=== PATIENT | female | born 1960 | race African-American/Black ===

== ENCOUNTER 2018-02-04 06:08 | Inpatient (IN) ==
--- NOTE | 2018-02-03 20:06 | Discharge Summary ---
<Jeanne Hoff - Last Filed: 02/03/18 20:04> Date of Encounter: 02/03/18 - Discharge Diagnosis (1) Arthritis of right hip Priority: Primary Status: Acute (2) Status post total hip replacement, right Priority: Primary Status: Acute (3) Tobacco use Priority: Secondary Status: Chronic (4) Obesity Priority: Secondary Status: Chronic Qualifiers: Obesity type: due to excess calories Obesity classification: unspecified obesity classification Serious obesity comorbidity presence: without serious comorbidity Qualified Code(s): E66.09 - Other obesity due to excess calories (5) NANCIE on CPAP Priority: Secondary Status: Chronic (6) Heart murmur Priority: Secondary Status: Chronic (7) Chronic pain Priority: Secondary Status: Chronic Comments: Takes Percocet 7.5/325 BID #30, 15 dy supply - LD: 01/06/18 O[facility]RS reviewed. Holding Chronic pain medication x 1-2 week. Qualifiers: Chronic pain type: other chronic pain Qualified Code(s): G89.29 - Other chronic pain - Hospital Course Hospital course: Ms. Stern is a 57 year old female - Time Spent with Patient Total time spent providing and/or coordinating discharge services: - Discharge Medications Home Medications: Ascorbate Calcium [Vitamin C] 500 mg PO DAILY 01/08/18 [History] Cholecalciferol (D-3) [Vitamin D] 1,000 unit PO DAILY 01/08/18 [History] Doxepin HCl [Doxepin HCl] 100 mg PO HS 01/08/18 [History] Melatonin [Melatonin] 3 mg PO HS 01/08/18 [History] [place]-3/Dha/Epa/Fish Oil [Fish Oil 1,000 mg Softgel] 1 cap PO DAILY 01/08/18 [ History] Omeprazole [PriLOSEC] 40 mg PO DAILY 01/08/18 [History] Sennosides/Docusate Sodium [Senna-S Tablet] 1 tab PO DAILY 01/08/18 [History] Trospium Chloride 20 mg PO BID 01/08/18 [History] traZODone [TraZODone] 50 mg PO HS 01/08/18 [History] Aspirin Enteric Coated [Aspirin EC] 325 mg PO BID 10 Days #20 tablet. [Rx] OxyCODONE/APAP 5/325 [Percocet 5/325 MG] 1 each PO Q6HR PRN 7 Days #28 tablet [Rx] Aspirin [Lo-Dose Aspirin EC] 81 mg PO HS 02/04/18 [History] Bifidobacterium Infantis [Align] 4 mg PO DAILY 02/04/18 [History] Ca/D3/Mag#11/Zinc/Engineer Steam/Richard/Bor [Caltrate 600+D Plus Tablet] 1 tab PO BID [History] Ibuprofen [Motrin] 800 mg PO Q8HR PRN 02/04/18 [History] Multivitamin [Multivitamins] 1 tab PO DAILY 02/04/18 [History] Polyethylene Glycol 3350 [MiraLAX] 17 gm PO DAILY PRN 02/04/18 [History] Pramipexole Di-HCl [Pramipexole Dihydrochloride] 0.5 mg PO HS 02/04/18 [History] Psyllium Husk [Daily Fiber] 0.52 gm PO DAILY 02/04/18 [History] Ramelteon [Rozerem] 8 mg PO HS 02/04/18 [History] Vitamin E 1,000 unit PO DAILY 02/04/18 [History] Zolpidem [Ambien] 5 mg PO HS 02/04/18 [History] Allergies/Adverse Reactions: 3 Allergy/AdvReac Type Severity Reaction Status Date / Time No Known Allergies Allergy Verified 02/04/18 07:49 Primary care physician: Betina Morrissey DO - Patient Status Disposition: Home Health Service Condition: Good - Discharge Instructions Follow Up With: Betina Morrissey DO [Primary Care Provider] - <Vasiliy Neal - Last Filed: 02/05/18 06:21> Orders not resulted at time of discharge: Pending orders 02/04/18 00:01 XR hip complete RT [XR] Routine H/H [Hemoglobin and Hematocrit] [HEME] Routine 02/04/18 07:20 US anesthesia pain block [US] Routine Date of Encounter: 02/05/18 Time of Encounter: 06:21 - Discharge Diagnosis (1) Morbid obesity with BMI of 40.0-44.9, adult Priority: Secondary Status: Chronic (2) Lumbar radiculitis Priority: Secondary Status: Chronic (3) Arthritis of right hip Priority: Primary Status: Chronic (4) Status post total hip replacement, right Priority: Primary Status: Acute (5) Tobacco use Priority: Secondary Status: Chronic (6) NANCIE on CPAP Priority: Secondary Status: Chronic (7) Heart murmur Priority: Secondary Status: Chronic (8) Chronic pain Priority: Secondary Status: Chronic Qualifiers: Chronic pain type: other chronic pain Qualified Code(s): G89.29 - Other chronic pain - Hospital Course Hospital course: Ms. Stern is a 57 year old female Status post total hip replacement The patient had an uneventful postoperative course. They received antibiotics and physical therapy and were discharged in stable condition. There will follow -up in the office in 2 weeks. - Time Spent with Patient Total time spent providing and/or coordinating discharge services: Primary care physician: Betina Morrissey DO - Patient Status Functional capacity at discharge: uses cane/walker Overall status at discharge: patient is progressing back to baseline
--- NOTE | 2018-02-03 20:10 | Physician Discharge Referral ---
Home Health/Hosp Referral Info Transfer to: Home Health Provider in Charge Post Discharge: PCP - Diagnosis (1) Arthritis of right hip Priority: Primary Status: Acute (2) Status post total hip replacement, right Priority: Primary Status: Acute (3) Tobacco use Status: Chronic (4) Obesity Status: Chronic (5) NANCIE on CPAP Status: Chronic (6) Heart murmur Status: Chronic (7) Chronic pain Status: Chronic - Respiratory Orders None Smoking Cessation: Smoking cessation has been advised. For more information, call the [place] Tobacco Quit Line at 6-931-JWYB-NOW. - Diet/Nutrition Diet/Nutrition Orders: Regular - Activity Activity Orders: Up ad siddhartha, Ambulate, Walker - Services Needed Following services are medically necessary services: Nursing, Home Health Aide, Physical Therapy, Occupational Therapy Other Treatments: HIP Continuity Opsite dressing, leave intact until first post-operative visit. If dressing becomes >50% saturated, contact office, remove dressing and place appropriate dressing in its place. Do not allow for dressing to get wet. Zipline/Thomas in place, plan to remove at post-operative day #14-16. Total Joint Precautions x 6 weeks Apply cold therapy wrap 3-6x/day for 20 minutes at a time. Encourage ambulation throughout the day Use Incentive spirometer 10x/hour. Elevate affected extremity above heart as tolerated. Brace: Wear hip abductor brace at night x 6 weeks.~ - Transfer Medications Prescriptions: OxyCODONE/APAP 5/325 [Percocet 5/325 MG] 1 each PO Q6HR PRN 7 Days #28 tablet PRN Reason: Severe Pain Aspirin Enteric Coated [Aspirin EC] 325 mg PO BID 10 Days #20 tablet.dr Home Medications: Ascorbate Calcium [Vitamin C] 500 mg PO DAILY 01/08/18 [History] Cholecalciferol (D-3) [Vitamin D] 1,000 unit PO DAILY 01/08/18 [History] Doxepin HCl [Doxepin HCl] 100 mg PO DAILY 01/08/18 [History] Ibuprofen [Advil] 200 mg PO Q8H PRN 01/08/18 [History] Melatonin [Melatonin] 3 mg PO HS 01/08/18 [History] [place]-3/Dha/Epa/Fish Oil [Fish Oil 1,000 mg Softgel] 1 cap PO DAILY 01/08/18 [ History] Omeprazole [PriLOSEC] 40 mg PO DAILY 01/08/18 [History] Sennosides/Docusate Sodium [Senna-S Tablet] 1 tab PO DAILY 01/08/18 [History] Trospium Chloride 20 mg PO BID 01/08/18 [History] traZODone [TraZODone] 50 mg PO HS 01/08/18 [History] Aspirin Enteric Coated [Aspirin EC] 325 mg PO BID 10 Days #20 tablet. [Rx] OxyCODONE/APAP 5/325 [Percocet 5/325 MG] 1 each PO Q6HR PRN 7 Days #28 tablet [Rx] Allergies/Adverse Reactions: 3 Allergy/AdvReac Type Severity Reaction Status Date / Time No Known Allergies Allergy Verified 01/29/18 13:25 Certification: Further, I certify that my clinical findings support that this patient is homebound (i.e. absences from home require considerable and taxing effort and are for medical reasons or amish services or infrequently or short duration when for other reasons) because: Homebound Reason: Patient requires assistance of a person or device to safely leave home, Post-surgery restriction and or conditions limit ability to leave home Attestation: My signature below is to certify that this patient is under my care and that I, or nurse practitioner, or a physician's emergency medicine physician assistant working with me, has a face-to -face encounter with this patient.
[2018-02-04] MEDS ORDERED: Ondansetron 4 MG/2 ML VIAL ONE (06:12)
[2018-02-04] MEDS ORDERED: *HR* FentaNYL (PF) 100 MCG/2 ML VIAL ONE ×2 (06:12→08:32)
[2018-02-04] MEDS ORDERED: Dexamethasone 4 MG/ML VIAL ONE (06:12)
[2018-02-04] MEDS ORDERED: *HR* Succinylcholine 200 MG/10 ML VIAL IVP ONE (06:12)
[2018-02-04] MEDS ORDERED: *HR* Rocuronium Bromide 50 MG/5 ML VIAL ONE (06:12)
[2018-02-04] MEDS ORDERED: Lidocaine -MPF 4% 5 ML AMPUL ONE (06:12)
[2018-02-04] MEDS ORDERED: *HR* Midazolam HCl 2 MG/2 ML VIAL ONE (06:12)
[2018-02-04] MEDS ORDERED: Lidocaine -MPF 2% 2 ML VIAL ONE (06:12)
[2018-02-04] MEDS ORDERED: *HR* Propofol 200 MG/20 ML VIAL IVP ONE (06:12)
[2018-02-04] MEDS ORDERED: CeFAZolin Syr 3,000MG/30 ML 3,000 MG/30 ML SYRINGE IVPB ONE (06:21)
[2018-02-04] MEDS ORDERED: Lidocaine -MPF 1% 2 ML VIAL ID ONE (06:21)
[2018-02-04] MEDS ORDERED: Albuterol 2.5 MG/3 ML NEBULIZER IH ONE (06:21)
[2018-02-04] MEDS ORDERED: Ringers Solution, Lactated 1,000 ML IVC SCH ×2 (06:30→11:08)
--- NOTE | 2018-02-04 06:48 | History & Physical Report ---
Date of Encounter: 02/04/18 Time of Encounter: 06:48 24 Hour HP Update - Instructions Instructions: If the History and Physical is less than 30 days old and was completed prior to A.M. admission and or procedure and has NOT been updated on calendar day of procedure please complete this update prior to performing procedure. - Update Patient reports changes in Medical Condition: No Changes in examination, assessment, or condition: No Changes in Medication: No Preop tests/diagnostics Reviewed: Yes Surgery Remains Indicated: Yes Consent for Planned Operative Procedure(s) Verified: Yes - Pre-Operative Checklist Preoperative Checklist Indicated: No Prophylactic Antibiotic Ordered: Yes Is VTE Prophylaxis Indicated?: Yes
[2018-02-04] MEDS ORDERED: Famotidine 20 MG/2 ML VIAL IVP ONE (07:04)
[2018-02-04] MEDS ORDERED: Pregabalin 75 MG CAPSULE PO ONE (07:05)
--- NOTE | 2018-02-04 07:08 | Anesthesia Evaluation PreOp ---
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 HX Other Medical History: Hepatic (Hep C), Diabetes Type II, Other (Morbid Obesity) Alcohol Use: none Drug use: none Medications and Allergies Ascorbate Calcium [Vitamin C] 500 mg PO DAILY 01/08/18 [History] Cholecalciferol (D-3) [Vitamin D] 1,000 unit PO DAILY 01/08/18 [History] Doxepin HCl [Doxepin HCl] 100 mg PO DAILY 01/08/18 [History] Ibuprofen [Advil] 200 mg PO Q8H PRN 01/08/18 [History] Melatonin [Melatonin] 3 mg PO HS 01/08/18 [History] [place]-3/Dha/Epa/Fish Oil [Fish Oil 1,000 mg Softgel] 1 cap PO DAILY 01/08/18 [ History] Omeprazole [PriLOSEC] 40 mg PO DAILY 01/08/18 [History] Sennosides/Docusate Sodium [Senna-S Tablet] 1 tab PO DAILY 01/08/18 [History] Trospium Chloride 20 mg PO BID 01/08/18 [History] traZODone [TraZODone] 50 mg PO HS 01/08/18 [History] Aspirin Enteric Coated [Aspirin EC] 325 mg PO BID 10 Days #20 tablet. [Rx] OxyCODONE/APAP 5/325 [Percocet 5/325 MG] 1 each PO Q6HR PRN 7 Days #28 tablet [Rx] 3 Allergy/AdvReac Type Severity Reaction Status Date / Time No Known Allergies Allergy Verified 01/29/18 13:25 - Meds/Allergy Pre-op Review Medications Reviewed: Yes Allergies Reviewed: Yes Beta Blockers on Current Med List: No Anesthesia Results - Labs Laboratory Tests 01/29/18 01/29/18 01/29/18 14:02 14:02 14:07 Hgb 12.7 Hct 40.1 Plt Count 270 PT 10.9 INR 1.0 APTT 32.1 Sodium 141 Potassium 4.1 BUN 20 Creatinine 0.99 - Imaging EKG: report reviewed (SR) Anesthesia Exam O2 Sat Height 1.73 m Height 1.73 m Weight 126.552 kg Weight 126.552 kg O2 Sat by Pulse Oximetry 96 O2 Sat by Pulse Oximetry 96 Vital Signs Temp Pulse Resp BP Pulse Ox 98.0 F 82 18 116/73 96 02/04/18 06:27 02/04/18 06:27 02/04/18 06:27 02/04/18 06:27 02/04/18 06:27 Height: 5'8 Weight: 279 lbs NPO (# of Hours): MN Pain Scale: 0 - HEENT Pupil (Motor): Pupils equal, EOMI Mallampati: II Teeth: Normal Oral Opening: Greater than 3 - 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
[2018-02-04] MEDS ORDERED: Lidocaine -MPF 1% 2 ML VIAL ONE (07:13)
[2018-02-04] MEDS ORDERED: Ethanol\\Acetic Acid\\Na Ace\\Ben 1,000 ML IRRIG.SOLN IR ONE (07:14)
[2018-02-04] MEDS ORDERED: ROPIVACAINE HCL/PF 0.5% 30 ML VIAL ONE (07:19)
[2018-02-04] MEDS ORDERED: Dexmedetomidine HCl 200 MCG/50 ML MLS IVC ONE (07:26)
--- NOTE | 2018-02-04 07:57 | Anesthesia Procedures ---
Date of Encounter: 02/04/18 Time of Encounter: 07:05 Procedures: Anesthesia - Nerve Block Procedure Date: 02/04/18 Time: 07:30 Pre-op Diagnosis: OA Rt Hip Surgical Procedure: Rt Hip Total Replacement Checklist: Correct Patient Identifier Correct side: Right Blood Thinner: No Monitor Applied: EKG, BP, Pulse Oximetry Supplemental Oxygen via Nasal Cannula (L/min): 2 Sedation: Versed (mg): 2 Sedation: Fentanyl (mcg): 100 Indication: Post Op Analgesia Pre-op Neuro Deficits: No Block Type: Other (Fascia Iliaca) Catheter placed: No Depth at skin (cm): 4 Sterile Technique: Yes Ultrasound used: Yes Anatomy identified: Yes Visual spread of Local: Yes Neuro Stimulation: No Blood on Needle Aspiration: No Smooth Injection of Local: Yes Pain with Injection of Local: No Prep: Chlorhexadine Needle: 21 x 100 mm Stimuplex Local: Ropivacaine (0.25%), Other (Precedex 40 micrograms) Volume (cc): 60 Number of Attempts: 1 Complications: None/effective block Vitals: Vital Signs/O2 Sat/Glucose, Most Current Temp Pulse Resp BP Pulse Ox 02/04/18 06:27 98.0 F 82 18 116/73 96
[2018-02-04] MEDS ORDERED: *HR* OxyCODONE Immed Rel 5 MG TABLET PO PRN (08:14)
[2018-02-04] MEDS ORDERED: Ondansetron 4 MG/2 ML VIAL IVP ONE (08:14)
[2018-02-04] MEDS ORDERED: Neostigmine Methylsulfate 3 MG/3 ML SYRINGE ONE (08:29)
[2018-02-04] MEDS ORDERED: Ketorolac 30 MG/ML VIAL ONE (09:00)
--- NOTE | 2018-02-04 09:13 | Orthopedic Operative Note ---
Date of procedure: 02/04/18 Pre-op diagnosis: right hip arthritis Post-op diagnosis: same Procedure: Procedure: Right Total Hip Replacment robotic-assisted Estimated blood loss: 200 cc Hardware: Metal and polyethylene replacement. Layla DM Cup: 52 cup Femoral size6 stem Head: 12 head with Evelyne Procedural Notes: Grade 4 arthritic changes femoral head acetabular socket, procedure performed with robotic assistance. 2 mm short as measured by CT scan preop Operative procedure: The patient was brought to the operating room and placed on the operating room table. After general anesthesia was administered the patient was placed in the lateral decubitus position with the operative leg up. All pressure points were padded appropriately and the head was stabilized in the neutral position. The operative extremity was prepped and draped in the sterile surgical fashion patient received IV antibiotic prior to skin incision. 3 Steinmann pins were placed in the iliac crest 3 cm proximal to the anterior superior iliac spine this was for the robotic-assisted sensor. This was done through a small 2 cm incision. A standard posterior approach is made to the operative hip, the incision was made through the skin and subcutaneous tissue hemostasis was obtained with Bovie cautery. Using careful sharp dissection the fascia was identified and incised exposing the external rotators. The femoral checkpoint was placed leg length was measured at this time utilizing robotic assistance. The external rotators were released off the greater trochanter and tagged with # 2 FiberWire suture. The capsule was T'd open and the hip was brought into internal rotation. Patient noted to have grade 4 arthritic changes femoral head. The femoral neck cut was made at the appropriate level roughly 8 mm proximal to the lesser trochanter aced on preoperative templating. An anterior capsulotomy was performed for the anterior retractor. Soft tissues removed from the acetabulum. Patient noted to have grade 4 arthritic changes acetabulum. The acetabulum checkpoint was placed confirmed. The acetabulum was then mapped with robotic assistance. Based on the preoperative plan the acetabulum was reamed in one step with a 51 reamer. The 52 acetabulum was impacted with robotic assistance and 44 degrees of abduction and 18 degrees of anteversion. The hip was brought back in to internal rotation and prepared with the cook box filler followed by the canal finder followed by the reaming process to a size 5/ 6 broaching process in 20 degrees anteversion. It was broached up to the appropriate size 6. Trial reduction revealed leg lengths close to normal. The femoral implant was impacted in place in 20 degrees of anteversion. Trial reduction found the hip to be stable with 12 head and Evelyne. The trials were removed and the real implants were impacted in place. The hip was reduced, patient had robotic confirmed leg length of 13 mm longer than the contralateral side. The hip had excellent stability with forward flexion to 90 degrees adduction of 30 degrees and internal rotation of 60 degrees. The hip had no shuck. The hips after 2 minutes with a antibacterial solution. It was irrigated out with 2 L of pulse irrigation. The checkpoints were removed, Steinmann pins were removed. The hip was closed by the PA. The deep tissue was irrigated and closed deep with #1 PDS suture superficially with 0 PDS suture and skin was closed with Dermabond and zip tie. The patient was placed in a sterile dressing and abduction pillow. The patient was extubated and transferred to the recovery room in stable condition. Anesthesia: GETDelmy Surgeon: Vasiliy Neal Was there an permit review assistant present: Yes Wet End Supervisor: Jeanne Hoff Estimated blood loss (cc): 200 Condition: stable Disposition: PACU
[2018-02-04] MEDS ORDERED: *HR* PHENYLEPHRINE 1,000 MCG/10 ML SYRINGE IVP ONE (09:41)
[2018-02-04] MEDS: MORPHINE SUL Oral CONC 10 MG/0.5 ML ORAL.SYG SL PRN ×2 (09:54→10:04)
[2018-02-04] MEDS ORDERED: Methocarbamol 500 MG TABLET PO ONE (10:13)
--- NOTE | 2018-02-04 10:50 | Anesthesia Evaluation Post Op ---
Date of Encounter: 02/04/18 Time of Encounter: 10:50 - Vital Signs Vital Signs: Vital Signs/O2 Sat/Glucose, Most Current Temp Pulse Resp BP Pulse Ox 02/04/18 10:44 97.2 F L 76 16 142/80 99 02/04/18 10:34 80 16 164/85 100 02/04/18 10:24 67 16 157/93 100 02/04/18 10:14 97.1 F L 76 16 154/90 100 02/04/18 10:04 73 16 151/90 99 02/04/18 09:54 72 16 140/81 99 02/04/18 09:44 97.5 F L 78 16 145/79 100 02/04/18 07:35 87 18 121/52 95 - Lungs Lungs: Clear Ascult./Percussion - Airway Airway: Non-obstructed - Cardiovascular Regular Rate - Mental Status Mental Status: Alert & Oriented, Answers Appropriately - Pain Pain Scale: 0 - Nausea Vomiting Nausea Vomiting: Not Present - Hydration Hydration: Ice chips - Discharge PostOp Status: Transfer Patient to floor
[2018-02-04] MEDS ORDERED: Temazepam 15 MG CAPSULE PO PRN (11:08)
[2018-02-04] MEDS ORDERED: MOM Conc 10 ML UD.LIQ PO PRN (11:08)
[2018-02-04] MEDS ORDERED: *HR* OxyCODONE/APAP 5/325 TABLET PO PRN (11:08)
[2018-02-04] MEDS ORDERED: Sennosides 8.6 MG TABLET PO PRN (11:08)
[2018-02-04] MEDS ORDERED: Ondansetron 4 MG/2 ML VIAL IVP PRN (11:08)
[2018-02-04] MEDS ORDERED: Ascorbic Acid 500 MG TABLET PO SCH (11:08)
[2018-02-04] MEDS ORDERED: traMADol 50 MG TABLET PO PRN (11:08)
[2018-02-04] MEDS ORDERED: Naloxone 0.4 MG/ML INJ IVP PRN (11:08)
[2018-02-04 11:19] LABS: Hematocrit 38.3 % (35.3-44.9); Hemoglobin 12.3 g/dL (11.5-15.4)
[2018-02-04] MEDS: (Trospium Chloride [Trospium Chloride] 20 MG) PO SCH ×2 (15:26→20:27)
[2018-02-04] MEDS: [UNRECOGNIZED DRUG - OTHER] PO SCH (15:26)
[2018-02-04] MEDS: Psyllium 1 PACKET POWD.PACK PO SCH (15:30)
[2018-02-04] MEDS: Multivit/Ca/Min/Fe/FA 1 TAB TABLET PO SCH ×2 (15:34→15:35)
[2018-02-04] MEDS: Ascorbic Acid 500 MG TABLET PO SCH ×2 (15:34→16:16)
[2018-02-04] MEDS: Cholecalciferol (D-3) 1,000 UNIT TABLET PO SCH (15:35)
[2018-02-04] MEDS: Sennosides/Docusate Sodium TABLET PO SCH (15:35)
[2018-02-04] MEDS: *HR* Enoxaparin 30 MG/0.3 ML SYRINGE SQ SCH (18:00)
[2018-02-04] MEDS ORDERED: *HR* Enoxaparin 30 MG/0.3 ML SYRINGE SQ SCH (18:00)
[2018-02-04] MEDS: CeFAZolin Syr 3,000MG/30 ML 3,000 MG/30 ML SYRINGE IVPB SCH (18:00)
[2018-02-04] MEDS: traZODone 50 MG TABLET PO SCH (20:25)
[2018-02-04] MEDS: Aspirin Enteric Coated 81 MG Tablet PO SCH (20:26)
[2018-02-04] MEDS: *HR* OxyCODONE Immed Rel 5 MG TABLET PO PRN (20:26)
[2018-02-04] MEDS: Lactobacillus 1 EACH CAP.SPRINK PO SCH (20:26)
[2018-02-05] MEDS: *HR* OxyCODONE Immed Rel 5 MG TABLET PO PRN ×5 (00:48→20:33)
[2018-02-05] MEDS: CeFAZolin Syr 3,000MG/30 ML 3,000 MG/30 ML SYRINGE IVPB SCH (00:49)
[2018-02-05] MEDS: [UNRECOGNIZED DRUG - OTHER] PO SCH ×3 (00:53→20:44)
[2018-02-05 01:02] LABS: Hematocrit 33.2 % (35.3-44.9); Hemoglobin 10.8 g/dL (11.5-15.4)
[2018-02-05 01:19] LABS: BUN/Creatinine Ratio 18 (6-26); Blood Urea Nitrogen 17 mg/dL (6-20); Calcium 9.1 mg/dL (8.6-10.3); Carbon Dioxide 26 mEq/L (23-29); Chloride 107 mEq/L (98-107); Glucose 161 mg/dL (70-105); Osmolality,Calculated 291 (280-300); Potassium 4.5 mEq/L (3.5-5.1); Sodium 138 mEq/L (136-145); eGFR For African Americans > 60 (> 60); eGFR For Non-African Americans > 60 (> 60)
[2018-02-05] MEDS: *HR* Enoxaparin 30 MG/0.3 ML SYRINGE SQ SCH ×2 (05:32→16:34)
--- NOTE | 2018-02-05 06:22 | Orthopedics Progress Note ---
Date of Encounter: 02/05/18 Time of Encounter: 06:21 - Assessment and Plan (1) Morbid obesity with BMI of 40.0-44.9, adult Current Visit: Yes Status: Chronic (2) Lumbar radiculitis Current Visit: No Status: Chronic (3) Arthritis of right hip Current Visit: No Status: Chronic (4) Status post total hip replacement, right Current Visit: No Status: Acute (5) Tobacco use Current Visit: No Status: Chronic (6) NANCIE on CPAP Current Visit: No Status: Chronic (7) Heart murmur Current Visit: No Status: Chronic (8) Chronic pain Current Visit: No Status: Chronic Qualifiers: Chronic pain type: other chronic pain Qualified Code(s): G89.29 - Other chronic pain Subjective Interval history: Patient was seen this morning doing well without complaints. Afebrile vital signs stable. Operative extremity: Neurovascularly intact Dressing clean dry and intact Calves nontender Assessment and plan: Continue with postoperative care Hemoglobin 10.8 discharged today Objective Vital signs: Vital Signs Temp Pulse Resp BP Pulse Ox 02/05/18 04:13 98.3 F 91 18 98/64 95 02/04/18 23:10 98.5 F 86 18 124/76 99 02/04/18 18:21 98.7 F 89 18 124/82 98 02/04/18 14:44 97.9 F 100 16 113/76 97 02/04/18 13:33 98.0 F 110 16 137/80 99 02/04/18 12:25 97.5 F L 89 16 140/85 98 02/04/18 11:48 97.7 F 90 16 106/71 98 02/04/18 11:10 97.6 F 82 16 140/86 100 02/04/18 10:54 85 16 157/88 99 02/04/18 10:44 97.2 F L 76 16 142/80 99 02/04/18 10:34 80 16 164/85 100 02/04/18 10:24 67 16 157/93 100 02/04/18 10:14 97.1 F L 76 16 154/90 100 02/04/18 10:04 73 16 151/90 99 02/04/18 09:54 72 16 140/81 99 02/04/18 09:44 97.5 F L 78 16 145/79 100 02/04/18 07:35 87 18 121/52 95 02/04/18 06:27 98.0 F 82 18 116/73 96 Intake and Output 02/04/18 02/04/18 02/05/18 15:59 23:59 07:59 Intake Total 770 / 770 175 / 175 Output Total 200 / 200 0 / 0 400 / 400 Balance -200 / -200 770 / 770 -225 / -225 Intake: IV Fluids 30 / 30 Ancef Syringe 3,000 MG/30 ML 3, 30 / 30 000 mg In 30 ml @ 200 mls/hr IVPB Q8HR [facility] Rx#:[id number] Oral 740 / 740 175 / 175 Output: Urine 0 / 0 400 / 400 Estimated Blood Loss 200 / 200 Other: Meal Dinner Percent of Meal Consumed 100% # Voids 1 Blood Glucose* 170 187 - Labs CBC & BMP: 02/05/18 00:34 02/05/18 00:34 Labs: Abnormal lab results Hgb 10.8 g/dL (11.5-15.4) L D 02/05/18 00:34 Hct 33.2 % (35.3-44.9) L 02/05/18 00:34 Glucose 161 mg/dL (70-105) H 02/05/18 00:34 POC Glucose 187 mg/dL (70-99) H 02/04/18 20:26 - VTE Documentation of Mechanical Device: Venous foot pump, device Consult Discharge Plan - Plan Referrals: Betina Morrissey DO [Primary Care Provider] -
[2018-02-05] MEDS: Ascorbic Acid 500 MG TABLET PO SCH ×2 (07:31→16:34)
[2018-02-05] MEDS: Sennosides/Docusate Sodium TABLET PO SCH (07:31)
[2018-02-05] MEDS: Lactobacillus 1 EACH CAP.SPRINK PO SCH ×2 (07:31→20:33)
[2018-02-05] MEDS: Cholecalciferol (D-3) 1,000 UNIT TABLET PO SCH (07:32)
[2018-02-05] MEDS: Psyllium 1 PACKET POWD.PACK PO SCH (07:32)
[2018-02-05] MEDS: (Trospium Chloride [Trospium Chloride] 20 MG) PO SCH ×2 (07:32→20:44)
[2018-02-05] MEDS: Multivit/Ca/Min/Fe/FA 1 TAB TABLET PO SCH ×2 (07:32)
--- NOTE | 2018-02-05 15:53 | Event Note ---
Date of Encounter: 02/05/18 Time of Encounter: 15:52 PCR - POD#1 - Right THR 02/04/18 - Stapled Patient seen at bedside. Labs reviewed. Pain control: adequate - added Lidoderm, Toradol and Flexeril Participating in PT. All questions and concerns addressed. Educated on use of incentive spirometer. Encouraged ambulation and proper hydration. Patient educated on post-operative restrictions and post-operative care. Addressed: see above Discharge plan: ECf, Continuity placed
--- NOTE | 2018-02-05 15:56 | Physician Discharge Referral ---
ExtendedCare Referral Info Transfer To: [facility] Provider in Charge: Provider in Charge after Transfer: PCP Institutional Level of Care: Skilled - Diagnosis (1) Arthritis of right hip Priority: Primary Status: Chronic (2) Status post total hip replacement, right Priority: Primary Status: Acute (3) Tobacco use Status: Chronic (4) Obesity Status: Chronic (5) NANCIE on CPAP Status: Chronic (6) Heart murmur Status: Chronic (7) Chronic pain Status: Chronic - Transfer Medications Prescriptions: Cyclobenzaprine [Flexeril] 10 mg PO BID PRN #20 tablet PRN Reason: Spasms Lidocaine Patch [Lidoderm 5% patch] 1 each TP DAILY 14 Days #28 adh..patch Zolpidem [Ambien] 5 mg PO HS 3 Days #3 tablet Home Medications: Ascorbate Calcium [Vitamin C] 500 mg PO DAILY 01/08/18 [History] Cholecalciferol (D-3) [Vitamin D] 1,000 unit PO DAILY 01/08/18 [History] Doxepin HCl [Doxepin HCl] 100 mg PO HS 01/08/18 [History] Melatonin [Melatonin] 3 mg PO HS 01/08/18 [History] [place]-3/Dha/Epa/Fish Oil [Fish Oil 1,000 mg Softgel] 1 cap PO DAILY 01/08/18 [ History] Omeprazole [PriLOSEC] 40 mg PO DAILY 01/08/18 [History] Sennosides/Docusate Sodium [Senna-S Tablet] 1 tab PO DAILY 01/08/18 [History] Trospium Chloride 20 mg PO BID 01/08/18 [History] traZODone [TraZODone] 50 mg PO HS 01/08/18 [History] Aspirin Enteric Coated [Aspirin EC] 325 mg PO BID 10 Days #20 tablet. [Rx] OxyCODONE/APAP 5/325 [Percocet 5/325 MG] 1 each PO Q6HR PRN 7 Days #28 tablet [Rx] Bifidobacterium Infantis [Align] 4 mg PO DAILY 02/04/18 [History] Ca/D3/Mag#11/Zinc/[employer] Specialist/Richard/Bor [Caltrate 600+D Plus Tablet] 1 tab PO BID [History] Ibuprofen [Motrin] 800 mg PO Q8HR PRN 02/04/18 [History] Multivitamin [Multivitamins] 1 tab PO DAILY 02/04/18 [History] Polyethylene Glycol 3350 [MiraLAX] 17 gm PO DAILY PRN 02/04/18 [History] Pramipexole Di-HCl [Pramipexole Dihydrochloride] 0.5 mg PO HS 02/04/18 [History] Psyllium Husk [Daily Fiber] 0.52 gm PO DAILY 02/04/18 [History] Ramelteon [Rozerem] 8 mg PO HS 02/04/18 [History] Vitamin E 1,000 unit PO DAILY 02/04/18 [History] Cyclobenzaprine [Flexeril] 10 mg PO BID PRN #20 tablet 02/05/18 [Rx] Lidocaine Patch [Lidoderm 5% patch] 1 each TP DAILY 14 Days #28 adh..patch 02/05 [Rx] Zolpidem [Ambien] 5 mg PO HS 3 Days #3 tablet 02/05/18 [Rx] Allergies/Adverse Reactions: 3 Allergy/AdvReac Type Severity Reaction Status Date / Time No Known Allergies Allergy Verified 02/04/18 07:49 - Respiratory Orders None Smoking Cessation: Smoking cessation has been advised. For more information, call the [place] Tobacco Quit Line at 2-688-MUKV-NOW. - Ancillary Orders May use pressure relief devices daily prn - Mobility Orders Chair, Ambulate - Rehabiliation Orders Rehab Potential: Good Rehab Orders: ROM Exercises, Evaluation for Physical Therapy, Evaluation for Occupational Therapy - Treatments Skin tear care topically daily PRN per policy List/Other: HIP Continuity Opsite dressing, leave intact until first post-operative visit. If dressing becomes >50% saturated, contact office, remove dressing and place appropriate dressing in its place. Do not allow for dressing to get wet. Zipline and yan in place, plan to remove at post-operative day #14-16. Total Joint Precautions x 6 weeks Apply cold therapy wrap 3-6x/day for 20 minutes at a time. Encourage ambulation throughout the day Use Incentive spirometer 10x/hour. Elevate affected extremity above heart as tolerated. Brace: Wear hip abductor brace at night x 6 weeks.~ CERTIFICATION: I certify that the transfer of the above named patient to an Extended Care Facility is necessary for the continuing treatment of the diagnosis listed. The above information is true and accurate reflection of patient's current condition. Confidential - Redisclosure prohibited without a patient's written consent.
[2018-02-05] MEDS: Aspirin Enteric Coated 81 MG Tablet PO SCH (20:33)
[2018-02-05] MEDS: traZODone 50 MG TABLET PO SCH (20:34)
[2018-02-06] MEDS: *HR* OxyCODONE Immed Rel 5 MG TABLET PO PRN ×5 (00:52→21:45)
[2018-02-06 01:43] LABS: Hemoglobin 10.7 g/dL (11.5-15.4)
[2018-02-06 02:02] LABS: BUN/Creatinine Ratio 20 (6-26); Blood Urea Nitrogen 16 mg/dL (6-20); Calcium 8.9 mg/dL (8.6-10.3); Carbon Dioxide 24 mEq/L (23-29); Chloride 103 mEq/L (98-107); Glucose 148 mg/dL (70-105); Osmolality,Calculated 286 (280-300); Potassium 4.3 mEq/L (3.5-5.1); Sodium 136 mEq/L (136-145); eGFR For African Americans > 60 (> 60); eGFR For Non-African Americans > 60 (> 60)
[2018-02-06] MEDS: *HR* Enoxaparin 30 MG/0.3 ML SYRINGE SQ SCH ×2 (06:14→16:33)
[2018-02-06] MEDS: (Trospium Chloride [Trospium Chloride] 20 MG) PO SCH (07:52)
[2018-02-06] MEDS: [UNRECOGNIZED DRUG - OTHER] PO SCH ×2 (07:52→20:28)
[2018-02-06] MEDS: Psyllium 1 PACKET POWD.PACK PO SCH (07:58)
[2018-02-06] MEDS: Ascorbic Acid 500 MG TABLET PO SCH ×2 (07:59→16:32)
[2018-02-06] MEDS: Lactobacillus 1 EACH CAP.SPRINK PO SCH ×2 (07:59→20:25)
[2018-02-06] MEDS: Multivit/Ca/Min/Fe/FA 1 TAB TABLET PO SCH ×3 (07:59→11:16)
[2018-02-06] MEDS: Cholecalciferol (D-3) 1,000 UNIT TABLET PO SCH (07:59)
[2018-02-06] MEDS: Sennosides/Docusate Sodium TABLET PO SCH (07:59)
--- NOTE | 2018-02-06 10:04 | Orthopedics Progress Note ---
Date of Encounter: 02/06/18 Time of Encounter: 10:03 - Assessment and Plan (1) Morbid obesity with BMI of 40.0-44.9, adult Current Visit: Yes Status: Chronic (2) Lumbar radiculitis Current Visit: No Status: Chronic (3) Arthritis of right hip Current Visit: No Status: Chronic (4) Status post total hip replacement, right Current Visit: No Status: Acute (5) Tobacco use Current Visit: No Status: Chronic (6) NANCIE on CPAP Current Visit: No Status: Chronic (7) Heart murmur Current Visit: No Status: Chronic (8) Chronic pain Current Visit: No Status: Chronic Qualifiers: Chronic pain type: other chronic pain Qualified Code(s): G89.29 - Other chronic pain Subjective Interval history: Patient was seen this morning doing well without complaints. Afebrile vital signs stable. Operative extremity: Neurovascularly intact Dressing clean dry and intact Calves nontender Assessment and plan: Continue with postoperative care Discharge held secondary to placement we will try discharged today Objective Vital signs: Vital Signs Temp Pulse Resp BP Pulse Ox 02/06/18 06:33 98.9 F 104 16 127/78 98 02/06/18 03:11 99.3 F 100 18 124/75 97 02/05/18 22:51 99.3 F 89 16 124/78 100 02/05/18 20:15 98.4 F 02/05/18 19:04 98.3 F 91 16 136/65 100 02/05/18 15:36 97.4 F L 81 16 114/75 99 02/05/18 11:56 98.3 F 90 18 130/81 99 Intake and Output 02/05/18 02/06/18 02/06/18 23:59 07:59 15:59 Intake Total 800 / 800 0 / 0 Output Total 0 / 0 Balance 800 / 800 0 / 0 Intake: Oral 800 / 800 0 / 0 Output: Urine 0 / 0 Other: # Voids 1 1 Blood Glucose* 145 156 - Labs CBC & BMP: 02/06/18 00:50 02/06/18 00:50 Labs: Abnormal lab results Hgb 10.7 g/dL (11.5-15.4) L 02/06/18 00:50 Hct 33.0 % (35.3-44.9) L 02/06/18 00:50 Glucose 148 mg/dL (70-105) H 02/06/18 00:50 POC Glucose 145 mg/dL (70-99) H 02/05/18 20:12 - VTE Documentation of Mechanical Device: Venous foot pump, device Consult Discharge Plan - Plan Additional Instructions: Discharge Instructions: Total Hip Replacement Please call [facility] ([phone]), your Primary Care Physician, or report to the Emergency Room if you have any of the following symptoms: Nausea, vomiting, fever greater that 101.5, swelling, chest pain, shortness of breath, increased pain/redness/drainage/odor for your incision site, numbness/ tingling, or any other concerning symptoms. ACTIVITY:Weight-bearing as tolerated for 8 weeks with hip dislocation precautions that physical therapy taught you. You may progress as tolerated under the guidance of your physical therapist. You do not need to sleep with a pillow between your legs. You can also seep on the operative side or on your stomach. MEDICATIONS: Upon discharge resume your home medications. Take all the medications as prescribed. Take a stool softener if taking narcotic pain medications. Stool softeners are only effective if you drink enough fluids. Drink 6-8 glass of water or fluids a day, unless this is not allowed for another health problem. Despite using stool softeners, if you haven't had a bowel movement in 3 days, please switch to a gentle laxative. Gentle laxatives are sold over the counter. You should have a bowel movement within 24 hours, if not call the office. You will be discharged from the hospital with a prescription for pain medication. You are encouraged to decrease the use of narcotic pain medication as tolerated. Should you require a refill, please call the office. [facility] prescribes narcotic pain medication for only 4-6 weeks after surgery. If you require pain medication beyond this time period, you may be referred to your Primary Care Physician or to the Pain Clinic for further evaluation. Plan ahead for refills on pain medication as many narcotics either need to be picked up at the office or mailed. It is best to call 48-72 hours in advance of needing a prescription refill so you don't run out of medication. To help control the post-operative pain, you may take NSAIDs (Aleve,Advil, Motrin, ibuprofen, naprosyn) or Tylenol as prescribed on the bottle in addition to the pain medication. ANTICOAGULATION (blood thinners): Continue your Aspirin, Lovenox or Coumadin as prescribed to help prevent a blood clot in the leg or in the lungs. As long as your incision remains dry and you tolerate the NSAIDs (Aleve, Advil, Motrin, Ibuprofen, Naprosyn), it is OK to use the NSAIDS while you are taking your anticoagulation medication. Should your incision start to drain, stop the NSAID and contact our office. Common symptoms of blood clot in the legs include: localized pain, swelling, calf tenderness, redness or discoloration of the skin. Blood clot in the lung symptoms include: shortness of breath, rapid pulse, sweating, and chest pain that worsens with deep breathing, coughing up blood, lightheadedness, feelings of anxiety. If you experience any of these symptoms notify your physician immediately, go to the emergency room, or if having trouble breathing, call 911. WOUND CARE: Leave the dressing on for 7 to 10days. You may change the dressing if it is saturated greater than 50%. Do not get the dressing wet at anytime. Wash your hands with antibacterial soap, rinse and dry prior to any wound care. If you have yan the visiting nurse or rehab facility can remove the stapes 10-14 days after surgery and place steri-strips across the wound. Leave the steri-strips in place until they fall off on their own. You may let water from the shower run on top of the steri-strips. If you do not have a visiting nurse or rehab facility, you will need to return to the office at 10-14 days for the yan to be removed. If you have itching or redness around the dressing call the office. FOLLOW-UP: Please follow up with your surgeon in the orthopedic clinic in 6 weeks from the day of surgery. If you have yan that need to be removed, you will need to come back to the office in 10-14 days from the day of surgery. Referrals: Betina Morrissey DO [Primary Care Provider] - Prescriptions: Cyclobenzaprine [Flexeril] 10 mg PO BID PRN #20 tablet PRN Reason: Spasms Lidocaine Patch [Lidoderm 5% patch] 1 each TP DAILY 14 Days #28 adh..patch Zolpidem [Ambien] 5 mg PO HS 3 Days #3 tablet
--- NOTE | 2018-02-06 11:47 | Event Note ---
Date of Encounter: 02/06/18 Time of Encounter: 11:46 PCR - POD#2 - Right THR 02/04/18 - Stapled Patient seen at bedside. Labs reviewed. Pain control: adequate - added Lidoderm, Toradol and Flexeril Participating in PT. All questions and concerns addressed. Educated on use of incentive spirometer. Encouraged ambulation and proper hydration. Patient educated on post-operative restrictions and post-operative care. Addressed: see above Discharge plan: [facility], Continuity placed, awaiting authorization.
[2018-02-06] MEDS: Aspirin Enteric Coated 81 MG Tablet PO SCH (20:25)
[2018-02-06] MEDS: traZODone 50 MG TABLET PO SCH (22:44)
[2018-02-07] MEDS: *HR* Enoxaparin 30 MG/0.3 ML SYRINGE SQ SCH (05:18)
[2018-02-07] MEDS: [UNRECOGNIZED DRUG - OTHER] PO SCH (07:57)
[2018-02-07] MEDS: Cholecalciferol (D-3) 1,000 UNIT TABLET PO SCH (08:05)
[2018-02-07] MEDS: Psyllium 1 PACKET POWD.PACK PO SCH (08:05)
[2018-02-07] MEDS: Lactobacillus 1 EACH CAP.SPRINK PO SCH (08:05)
[2018-02-07] MEDS: Sennosides/Docusate Sodium TABLET PO SCH (08:05)
[2018-02-07] MEDS: Multivit/Ca/Min/Fe/FA 1 TAB TABLET PO SCH (08:06)
[2018-02-07] MEDS: *HR* OxyCODONE Immed Rel 5 MG TABLET PO PRN ×2 (08:06→12:46)
[2018-02-07] MEDS: Ascorbic Acid 500 MG TABLET PO SCH (08:06)
--- NOTE | 2018-02-07 08:13 | Orthopedics Progress Note ---
Date of Encounter: 02/07/18 Time of Encounter: 08:12 - Assessment and Plan (1) Morbid obesity with BMI of 40.0-44.9, adult Current Visit: Yes Status: Chronic (2) Lumbar radiculitis Current Visit: No Status: Chronic (3) Arthritis of right hip Current Visit: No Status: Chronic (4) Status post total hip replacement, right Current Visit: No Status: Acute (5) Tobacco use Current Visit: No Status: Chronic (6) NANCIE on CPAP Current Visit: No Status: Chronic (7) Heart murmur Current Visit: No Status: Chronic (8) Chronic pain Current Visit: No Status: Chronic Qualifiers: Chronic pain type: other chronic pain Qualified Code(s): G89.29 - Other chronic pain Subjective Interval history: Patient was seen this morning doing well without complaints. Afebrile vital signs stable. Operative extremity: Neurovascularly intact Dressing clean dry and intact Calves nontender Assessment and plan: Continue with postoperative care Discharge held secondary to placement we will discharged today Objective Vital signs: Vital Signs Temp Pulse Resp BP Pulse Ox 02/07/18 07:28 99.2 F 104 18 109/65 97 02/07/18 03:43 99.3 F 110 18 101/69 96 02/06/18 23:46 99.7 F H 63 16 114/71 96 02/06/18 20:09 100.9 F H 02/06/18 20:03 100.5 F H 102 16 119/76 96 02/06/18 14:53 98 F 101 16 146/78 96 02/06/18 12:00 97.6 F 108 16 154/76 96 Intake and Output 02/06/18 02/07/18 02/07/18 23:59 07:59 15:59 Intake Total 300 / 300 0 / 0 Output Total 0 / 0 300 / 300 Balance 300 / 300 -300 / -300 Intake: Oral 300 / 300 0 / 0 Output: Urine 0 / 0 300 / 300 Other: # Voids 1 Blood Glucose* 114 133 - Labs CBC & BMP: 02/06/18 00:50 02/06/18 00:50 Labs: Abnormal lab results Hgb 10.7 g/dL (11.5-15.4) L 02/06/18 00:50 Hct 33.0 % (35.3-44.9) L 02/06/18 00:50 Glucose 148 mg/dL (70-105) H 02/06/18 00:50 POC Glucose 114 mg/dL (70-99) H 02/06/18 20:08 - VTE Documentation of Mechanical Device: Venous foot pump, device Consult Discharge Plan - Plan Additional Instructions: Discharge Instructions: Total Hip Replacement Please call [facility] ([phone]), your Primary Care Physician, or report to the Emergency Room if you have any of the following symptoms: Nausea, vomiting, fever greater that 101.5, swelling, chest pain, shortness of breath, increased pain/redness/drainage/odor for your incision site, numbness/ tingling, or any other concerning symptoms. ACTIVITY:Weight-bearing as tolerated for 8 weeks with hip dislocation precautions that physical therapy taught you. You may progress as tolerated under the guidance of your physical therapist. You do not need to sleep with a pillow between your legs. You can also seep on the operative side or on your stomach. MEDICATIONS: Upon discharge resume your home medications. Take all the medications as prescribed. Take a stool softener if taking narcotic pain medications. Stool softeners are only effective if you drink enough fluids. Drink 6-8 glass of water or fluids a day, unless this is not allowed for another health problem. Despite using stool softeners, if you haven't had a bowel movement in 3 days, please switch to a gentle laxative. Gentle laxatives are sold over the counter. You should have a bowel movement within 24 hours, if not call the office. You will be discharged from the hospital with a prescription for pain medication. You are encouraged to decrease the use of narcotic pain medication as tolerated. Should you require a refill, please call the office. [facility] prescribes narcotic pain medication for only 4-6 weeks after surgery. If you require pain medication beyond this time period, you may be referred to your Primary Care Physician or to the Pain Clinic for further evaluation. Plan ahead for refills on pain medication as many narcotics either need to be picked up at the office or mailed. It is best to call 48-72 hours in advance of needing a prescription refill so you don't run out of medication. To help control the post-operative pain, you may take NSAIDs (Aleve,Advil, Motrin, ibuprofen, naprosyn) or Tylenol as prescribed on the bottle in addition to the pain medication. ANTICOAGULATION (blood thinners): Continue your Aspirin, Lovenox or Coumadin as prescribed to help prevent a blood clot in the leg or in the lungs. As long as your incision remains dry and you tolerate the NSAIDs (Aleve, Advil, Motrin, Ibuprofen, Naprosyn), it is OK to use the NSAIDS while you are taking your anticoagulation medication. Should your incision start to drain, stop the NSAID and contact our office. Common symptoms of blood clot in the legs include: localized pain, swelling, calf tenderness, redness or discoloration of the skin. Blood clot in the lung symptoms include: shortness of breath, rapid pulse, sweating, and chest pain that worsens with deep breathing, coughing up blood, lightheadedness, feelings of anxiety. If you experience any of these symptoms notify your physician immediately, go to the emergency room, or if having trouble breathing, call 911. WOUND CARE: Leave the dressing on for 7 to 10days. You may change the dressing if it is saturated greater than 50%. Do not get the dressing wet at anytime. Wash your hands with antibacterial soap, rinse and dry prior to any wound care. If you have yan the visiting nurse or rehab facility can remove the stapes 10-14 days after surgery and [address] steri-strips across the wound. Leave the steri-strips in place until they fall off on their own. You may let water from the shower run on top of the steri-strips. If you do not have a visiting nurse or rehab facility, you will need to return to the office at 10-14 days for the yan to be removed. If you have itching or redness around the dressing call the office. FOLLOW-UP: Please follow up with your surgeon in the orthopedic clinic in 6 weeks from the day of surgery. If you have yan that need to be removed, you will need to come back to the office in 10-14 days from the day of surgery. Referrals: Betina Morrissey DO [Primary Care Provider] - Prescriptions: Cyclobenzaprine [Flexeril] 10 mg PO BID PRN #20 tablet PRN Reason: Spasms Lidocaine Patch [Lidoderm 5% patch] 1 each TP DAILY 14 Days #28 adh..patch Zolpidem [Ambien] 5 mg PO HS 3 Days #3 tablet
[2018-02-07 10:28] VITALS: BP 134/84
--- NOTE | 2018-02-07 12:19 | Event Note ---
Date of Encounter: 02/07/18 Time of Encounter: 12:18 PCR - POD#3 - Right THR 02/04/18 - Stapled Patient seen at bedside. Labs reviewed. Pain control: adequate - added Lidoderm, Toradol and Flexeril Participating in PT. All questions and concerns addressed. Educated on use of incentive spirometer. Encouraged ambulation and proper hydration. Patient educated on post-operative restrictions and post-operative care. Addressed: see above Discharge plan: [facility], Continuity placed
== END 2018-02-07 16:51 | disposition home health service (06) | DRG 301 ==
LOC: SAMDAY 06:08 → 3NENU 11:12
PROVIDERS: ADMIT Orthopaedic Surgery; ATTEND Orthopaedic Surgery